=== PATIENT | male | born 1940 | race Caucasian/White ===

== ENCOUNTER 2021-07-23 12:17 | Day surgery (SDC) | payer MEDICARE, OTHER ==
[~2021-07-23] VITALS: Ht 170.2 cm; Wt 54.5 kg
[~2021-07-23 12:17] MED LIST: ATOR20TA86 PO; CLOP75TA60 PO; DOCU-385 PO; FERR324T23 PO; HYDR-4870 PO; LOSA-382 PO; MULT-1239 PO; PANT-31 PO; PROPOFOL 1% 20 ML VIAL IVP ONE; SODIUM CHLORIDE 0.9% 1,000 ML IV ONE; SODIUM CHLORIDE 0.9% 1,000 ML ONE
[2021-07-23 12:38] LABS: COVID AG,FIA SOURCE NASOPHARYNGEAL
== END 2021-07-23 16:00 | disposition home or self-care (01) ==
LOC: SURGERY 12:17
PROVIDERS: ATTEND Internal Medicine Gastroenterology
DX: K22.2 Esophageal obstruction (principal); K21.9 Gastro-esophageal reflux disease without esophagitis; D50.9 Iron deficiency anemia, unspecified; K44.9 Diaphragmatic hernia without obstruction or gangrene; Z79.899 Other long term (current) drug therapy; Z98.890 Other specified postprocedural states
CPT/HCPCS: 43249; 87426; 88305; 88341; 88342; C9803; J2704; J7030

== ENCOUNTER 2023-12-13 06:52 | Day surgery (SDC) | payer MEDICARE, OTHER ==
[~2023-12-13] VITALS: Ht 167.6 cm; Wt 47.3 kg
[~2023-12-13 06:52] MED LIST changes: +AMLO-257 PO; +ASPI-1450 PO; -ATOR20TA86 PO; -CLOP75TA60 PO; -DOCU-385 PO; +ESOM40SU2 PO; -FERR324T23 PO; -HYDR-4870 PO; -LOSA-382 PO; +METO-325 PO; -MULT-1239 PO; +OMEP10CA38 PO; -PROPOFOL 1% 20 ML VIAL IVP ONE; +ROSU10TA72 PO; -SODIUM CHLORIDE 0.9% 1,000 ML IV ONE
[2023-12-13] MEDS: SODIUM CHLORIDE 0.9% 1,000 ML IV ONE (07:43)
[2023-12-13] MEDS ORDERED: PROPOFOL 1% ISO-OSM 1000 MG/100 ML BOTTLE IV ONE (12:00)
[2023-12-13] MEDS ORDERED: ONDANSETRON HCL 4 MG/2 ML VIAL IVP ONE (12:00)
[2023-12-13] MEDS ORDERED: EPHEDrine SULFATE 50 MG/ML VIAL IM ONE (12:00)
[2023-12-13] MEDS ORDERED: GLYCOPYRROLATE 0.2 MG/ML VIAL IM ONE (12:00)
[2023-12-13] MEDS ORDERED: LIDOCAINE/PF 1% 2 ML VIAL IM ONE (12:00)
== END 2023-12-13 11:10 | disposition home or self-care (01) ==
LOC: SURGERY 06:52
PROVIDERS: ATTEND Internal Medicine
DX: R13.10 Dysphagia, unspecified (principal); K22.2 Esophageal obstruction; K44.9 Diaphragmatic hernia without obstruction or gangrene; K29.40 Chronic atrophic gastritis without bleeding; I45.10 Unspecified right bundle-branch block; I48.91 Unspecified atrial fibrillation; I11.9 Hypertensive heart disease without heart failure; E78.00 Pure hypercholesterolemia, unspecified; K21.9 Gastro-esophageal reflux disease without esophagitis; Z86.73 Personal history of transient ischemic attack (TIA), and cerebral infarction without residual deficits; Z79.82 Long term (current) use of aspirin; Z79.899 Other long term (current) drug therapy; Z98.42 Cataract extraction status, left eye
CPT/HCPCS: 43249; 93005; J3490 ×3; J2405; J2704; J7030